=== PATIENT | female | born 1960 | race Two or more races ===

== ENCOUNTER 2024-05-11 21:55 | Emergency (ER) | payer MEDICAID, SELFPAY ==
[2024-05-11 21:56] VITALS: BMI 34.3
[2024-05-11 22:30] VITALS: BP 144/90; PULSE 80; RESP 18; TEMP 36.7; O2SAT 96
--- NOTE | 2024-05-11 23:44 | XR_ITS ---
Examination: PA lateral chest 2 views Technique: Upright PA lateral chest 2 views Exam date and time: May 11, 2024 11:50 PM Comparison December 08, 2023 Indications: Chest pain today. Findings: Moderate elevation right hemidiaphragm Mild enlargement left ventricle No pneumonia or pulmonary edema Moderate osteopenia Impression: No pneumonia or pulmonary edema
--- NOTE | 2024-05-11 23:44 | XR_ITS ---
Examination: CT brain head without contrast. 2-D sagittal coronal reconstructions Date and time of exam:May 12, 2024 at 0006 hrs. Indications: Syncopal episode followed by weakness in the legs today CTDI: vol (mGy):47.60 DLP: (mGycm):992 Technique: Multiple CT axial sections of the brain have been obtained, 5 mm slice thickness. Contrast has not been administered. 2-D sagittal, coronal reconstructions have been obtained Low dose protocols were performed. One or more of the following dose reduction techniques were used; automated exposure control, adjustment of the mA and/or KV according to patient size, use of iterative reconstruction technique. Findings: No significant ventricular enlargement. Intra-axial or extra-axial hemorrhage density is not seen. No mass effect or midline shift Basal cisterns are not remarkable. Fourth ventricle is midline. Cranial vault intact. Impression: Negative for acute hemorrhage, mass effect or midline shift As clinically warranted, if symptoms persist, consider brain MRI follow-up
--- NOTE | 2024-05-11 23:45 | PD.EDRME ---
Rapid Medical Screening Exam RME Arrival date/time: 05/11/24 21:55 63-year-old female with past medical history of CVA, hypertension, and hip replacement presents emergency department complaining of near syncope and bilateral lower extremity weakness that started around 2129. Chief Complaint: Weakness Time Seen by Provider: 05/11/24 23:30 Vital signs: Vital Signs Temperature 98.1 F 05/11/24 22:30 Pulse Rate 80 05/11/24 22:30 Respiratory Rate 18 05/11/24 22:30 Blood Pressure 144/90 H 05/11/24 22:30 Pulse Oximetry (%) 96 05/11/24 22:30 Oxygen Delivery Method Room Air 05/11/24 22:30 Vital signs reviewed by provider: Yes
[2024-05-12 00:20] LABS: Basophils % (Auto) 1 % (0-2.5); Eosinophils # (Auto) 0.1 Thou/mm3 (0.0-0.5); Eosinophils % (Auto) 1 % (0-10); Hematocrit 43.3 % (36.0-46.0); Hemoglobin 13.9 g/dL (12.0-16.0); Immature Granulocytes % (Auto) 0 % (0-0); Immature Granulocytes Auto 0.01 Thou/mm3 (0.00-0.00); Lymphocytes # (Auto) 1.8 Thou/mm3 (1.0-4.8); Lymphocytes % (Auto) 26 % (10-50); Mean Corpuscular HGB Conc 32.1 g/dl (31.0-37.0); Mean Corpuscular Hemoglobin 28.8 pg (25.0-35.0); Mean Corpuscular Volume 90 fL (80-100); Monocytes # (Auto) 0.4 Thou/mm3 (0.0-0.8); Monocytes % (Auto) 6 % (0-12); Neutrophils # (Auto) 4.7 Thou/mm3 (1.8-7.7); Neutrophils % (Auto) 67 % (37-80); Nucleated Red Blood Cell % 0 /100 WBC (0); Platelet Count 230 Thou/mm3 (140-440); Red Blood Count 4.83 Miln/mm3 (4.00-5.20)
--- NOTE | 2024-05-12 00:22 | PRELIM_ITS ---
CT scan of the head without intravenous contrast (axial sections with sagittal and coronal reformats) . May 12, 2024 0006 hours Clinical History: Near syncope Comparison: 10/25/23Findings:There is no intracranial hemorrhage, extra-axial collection, mass, mass-effect or midline shift.There is good gra y-white differentiation. There is no CT evidence of acute large vascular territorial infarct. There is minimal basal ganglia calcification in the right cerebral hemisphere. There is atherosclerotic c alcification along the carotid siphons.Ventricles are not enlarged or effaced.Visualized paranasal si nuses and tympanomastoid cavities are clear. The bony calvarium is intact.Impression:No intracranial hemorrhage, mass-effect or midline shift. No CT evidence of acute large vascular territorial infarc t. Report Electronically Signed By: Nile Chavez 05/12/2024 12:21:19 AM [EST]
[2024-05-12 00:53] LABS: Alanine Aminotransferase 19 U/L (10-49); Albumin/Globulin Ratio 1.5 (1.2-2.2); Alkaline Phosphatase 113 U/L (46-116); Anion Gap 10 (7-16); Aspartate Amino Transferase 33 U/L (0-34); BUN/Creatinine Ratio 15 Ratio (12-20); Bilirubin,Total 0.7 mg/dL (0.3-1.2); Blood Urea Nitrogen 12 mg/dL (9-23); Calcium 10.2 mg/dL (8.3-10.6); Calcium (Corrected) 10.2 mg/dL (8.5-10.1); Carbon Dioxide 26.3 mMol/L (20.0-31.0); Chloride 105 mMol/L (98-107); Creatinine (Component) 0.8 mg/dL (0.6-1.3); Estimated Creatinine Clearance 79.5 mL/min (>60); Globulin 3.4 gm/dL (2.3-3.5); Glucose 101 mg/dL (74-106); Osmolality,Calculated 280 (275-295); Potassium 3.8 mMol/L (3.4-5.1); Sodium 141 mMol/L (136-145); Total Protein 8.4 gm/dL (5.7-8.2); Troponin I < 0.002 ng/mL (0.0-0.045); eGFR > 60 See Note
[2024-05-12 01:35] VITALS: BP 150/99; PULSE 97; RESP 18; TEMP 36.7; O2SAT 96
[2024-05-12 01:41] LABS: Collection Type, Urine Clean Catch
[2024-05-12 01:52] LABS: B-Type Natriuretic Peptide < 20 pg/mL (0-100)
[2024-05-12 02:14] LABS: Amphetamine/Methamp Scrn,U Negative (Negative); Barbiturate Screen,Urine Negative (Negative); Benzodiazepines Screen,Urine Negative (Negative); Benzoylecgonine Screen, Ur Negative (Negative); Fentanyl Screen,Urine Negative (Negative); Opiate Screen,Urine Negative (Negative); THC Screen,Urine Negative (Negative)
[2024-05-12 02:32] LABS: Bilirubin,Urine Negative (Negative); Blood,Urine Negative (Negative); Clarity,Urine Clear (Clear/Hazy); Color,Urine Yellow (Lt Yel-Yel); Glucose, Urine 4+ (Negative); Ketones,Urine 1+ (Negative); Leukocyte Esterase,Urine Negative (Negative); Nitrite,Urine Negative (Negative); PH,Urine 5.5 (5.0-7.0); Protein,Urine Trace (Neg - Trace); RBC,Urine 3 /hpf (0-3); Specific Gravity,Urine 1.039 (1.001-1.035); Sperm,Urine Present; Squamous Epithelial Cell,Urine 3 /hpf (0-5); Urobilinogen,Urine Negative mg/dL (0.0-1.0); WBC,Urine 5 /hpf (0-5)
[2024-05-12 02:35] LABS: Culture Indicated,Urine Not Indicated
[2024-05-12 03:15] VITALS: BP 159/95; PULSE 102; RESP 18; TEMP 36.8; O2SAT 96
--- NOTE | 2024-05-12 04:27 | PD.EDWEAK ---
ED Weakness RME/HPI General Chief complaint: Weakness Stated complaint: LEGS FEEL WEAK Time Seen by Provider: 05/11/24 23:30 Arrival date/time: 05/11/24 21:55 Limitations: no limitations RME / HPI RME / HPI Narrative: 05/11/24 21:55 63-year-old female with past medical history of CVA, hypertension, and hip replacement presents emergency department complaining of near syncope and bilateral lower extremity weakness that started around 2129. --------- Dr. Segal's Main ED Evaluation: Related Data Home Medications ?Medication ?Instructions ?Recorded ?Confirmed clopidogrel 75 mg tablet 75 mg PO QDAY 12/02/22 01/27/24 duloxetine 30 mg capsule,delayed 30 mg PO BID 12/02/22 01/27/24 release losartan 25 mg tablet 25 mg PO QDAY 12/02/22 01/27/24 omega 0-toj-dbc-fish oil 60 mg-90 1 cap PO QDAY 09/16/23 01/27/24 mg-500 mg capsule (Fish Oil) rosuvastatin 10 mg tablet 10 mg PO DAILY 09/16/23 01/27/24 Previous Rx's ?Medication ?Instructions ?Recorded acetaminophen 500 mg tablet 1,000 mg (2 x 500 mg) PO Q6H PRN 09/18/23 (Acetaminophen Extra Strength) pain #90 tabs aspirin 81 mg tablet,delayed 81 mg PO DAILY #30 tabs 09/18/23 release doxycycline hyclate 100 mg tablet 100 mg PO BID #14 tabs 09/18/23 gabapentin 300 mg capsule 300 mg PO .qhs #30 caps 09/18/23 oxycodone 5 mg tablet 5 mg PO Q6H PRN pain #28 tabs 09/18/23 sennosides 8.6 mg-docusate sodium 1 tab-cap PO QDAY #30 tabs 09/18/23 50 mg tablet (Senna-S) Allergies Allergy/AdvReac Type Severity Reaction Status Date / Time No Known Allergies Allergy Verified 01/27/24 17:07 Review of Systems Review of Systems Systems Reviewed: All systems reviewed, normal except as documented Past Medical History Past Medical History NEUROLOGIC: Positive Neurological Disorders and Cerebrovascular Accident (September 2022, Dr Gibson); Negative Seizures CARDIAC: Positive Cardiac Disorders, Hypercholesterolemia and Hypertension; Negative Congestive Heart Failure RESPIRATORY: Negative Chronic Obstructive Pulmonary Disease (COPD), Smoking, Smoking Cessation Counseling, Smoking Exposure or Tobacco Use GASTROINTESTINAL: Positive Gastrointestinal Disorders GENITOURINARY: Negative Genitourinary Disorders or Renal Disease REPRODUCTIVE: Positive Previous Pregnancies MUSCULOSKELETAL: Positive Musculoskeletal Disorders and Arthritis ENDOCRINE: Negative Endocrine Disorders, Diabetes Mellitus Type 1 or Diabetes Mellitus Type 2 HEMATOLOGIC: Negative Blood Disorders PSYCHO/SOCIAL: Positive Depression and Anxiety OTHER HISTORY: Positive Hospitalization (cva 2022), Shingles and Chicken Pox; Negative Autoimmune Disease, Falls, Blood Transfusions, Blood Transfusion Reaction, Anesthesia Reactions, MRSA or Cancer Family History FAMILY HISTORY: Positive Family Cardiac Disorders, Family Cancer and Family Surgery; Negative Family Psychiatric Problems, Family Respiratory Disorders, Family Gastrointestinal Problems or Family Anesthesia Reaction Surgical History SURGICAL: Positive Section Social History SMOKING STATUS: Never smoker ED Exam General Limitations: Present no limitations General appearance: Present alert and in no apparent distress Head Head exam: Present atraumatic Eye Eye exam: Present normal appearance, PERRL and EOMI ENT ENT exam: Present normal exam, normal oropharynx and mucous membranes moist Neck Neck exam: Present normal inspection, full ROM and trachea midline Chest Chest inspection: Present normal inspection and symmetric chest wall rise Respiratory Respiratory exam: Present normal lung sounds bilaterally Cardiovascular Cardiovascular exam: Present regular rate, normal rhythm and normal heart sounds Abdominal Exam Abdominal exam: Present soft and normal bowel sounds Extremities Exam Extremities exam: Present normal inspection and full ROM Back Exam Back exam: Present normal inspection and full ROM Neurological Exam Neurological exam: Present alert, oriented X3 and CN II-XII intact Psychiatric Psychiatric exam: Present normal affect and normal mood Skin Skin exam: Present warm, dry, intact and normal color Course Quality Measures none Orders Category Date Time Status EKG (ED ONLY) *Do not use* NOW Care 05/11/24 23:[address] head/brain wo con Stat Exams 05/11/24 23:44 Taken EKG (ED Only) Stat Exams 05/11/24 23:44 Ordered XR chest 2V Stat Exams 05/11/24 23:44 Completed BNP [B-Type Natriuretic Peptide] Stat Lab 05/11/24 23:57 Completed CBC Stat Lab 05/11/24 23:57 Completed Comprehensive Metabolic Panel Stat Lab 05/11/24 23:57 Completed Drug Screen,Urine Stat Lab 05/12/24 01:30 Completed Troponin I Stat Lab 05/11/24 23:57 Completed Urinalysis, C/S if Indicated Stat Lab 05/12/24 01:30 Completed Sodium Chloride 0.9% 1000 ml [Ns] 1,000 ml Med 05/12/24 04:28 Active IV 999 mls/hr Vital Signs Vital signs: Vital Signs Temperature 98.1 F 05/11/24 22:30 Pulse Rate 80 05/11/24 22:30 Respiratory Rate 18 05/11/24 22:30 Blood Pressure 144/90 H 05/11/24 22:30 Pulse Oximetry (%) 96 05/11/24 22:30 Oxygen Delivery Method Room Air 05/11/24 22:30 Pulse ox is 96% on room air, which is normal according to my interpretation. Weakness Patient data External records reviewed:: [facility] previous records (Per chart review, patient was seen here on 12/08/23 for physical deconditioning.) Clinical information provided by:: patient Social determinants that could affect healthcare access:: none Patient has the following chronic illnesses:: CVA (2022), HTN How is presenting disease/condition affected by chronic disease/condition?: exacerbated by Evaluation data The following diagnostics were reviewed and interpreted by me:: lab results and radiology exam(s) Lab and/or radiology exams considered but not ordered:: none Interpretation Summary: CBC is normal, CMP is normal, troponin is normal, BNP is normal, UA shows an elevated specific gravity of 1.039, UDS is negative, according to my interpretation. EKG done at ---- [facility] Report Signed Patient: LB PALAFOX [facility]. Record#: [id number] Birthdate: 1960 Age/Sex: 63 / F Location: [facility] Attending Dr: Ordering Physician: Esmer LATIF)Bam Date of Service: 05/11/24 Procedure(s): XR chest 2V Accession Number(s): [id number] cc: Marcell Nance MD; Eamon Fine MD; Bam Isabel (FNP)~ Examination: PA lateral chest 2 views Technique: Upright PA lateral chest 2 views Exam date and time: May 11, 2024 11:50 PM Comparison December 08, 2023 Indications: Chest pain today. Findings: Moderate elevation right hemidiaphragm Mild enlargement left ventricle No pneumonia or pulmonary edema Moderate osteopenia Impression: No pneumonia or pulmonary edema Dictated By: Eamon Fine MD Signed By: <Electronically signed by Eamon Fine MD in OV> 05/11/24 8772 [address] Preliminary Report Draft Patient: LB PALAFOX Med. Record#: [id number] Birthdate: 1960 Age/Sex: 63 / F Location: [facility] Attending Dr: Ordering Physician: Date of Service: Procedure(s): Accession Number(s): cc: ~ CT scan of the head without intravenous contrast (axial sections with sagittal and coronal reformats). May 12, 2024 0006 hours Clinical History: Near syncope Comparison: 10/25/23 Findings: There is no intracranial hemorrhage, extra-axial collection, mass, mass-effect or midline shift. There is good lacey-white differentiation. There is no CT evidence of acute large vascular territorial infarct. There is minimal basal ganglia calcification in the right cerebral hemisphere. There is atherosclerotic calcification along the carotid siphons. Ventricles are not enlarged or effaced. Visualized paranasal sinuses and tympanomastoid cavities are clear. The bony calvarium is intact. Impression: No intracranial hemorrhage, mass-effect or midline shift. No CT evidence of acute large vascular territorial infarct. Report Electronically Signed By: Nile Chavez 05/12/2024 12:21:19 AM [EST] Medications / Prescriptions Medication administrations:: Medication Administration History Sodium Chloride (Ns) 1,000 mls @ 999 mls/hr IV .Q1H1M ONE Stop: 05/12/24 05:28 Discharge Plan Prescriptions/Referrals Prescriptions/Med Rec: No Action clopidogrel 75 mg tablet 75 mg PO QDAY Patient Comments: TAKE 1 TABLET BY MOUTH EVERY DAY FOR 90 DAYS losartan 25 mg Tablet 25 mg PO QDAY duloxetine 30 mg capsule,delayed release(/EC) 30 mg PO BID Patient Comments: TAKE 1 CAPSULE BY MOUTH EVERY DAY FOR 7 DAYS THEN INCREASE TO TAKE 1 CAPSULE BY MOUTH TWICE A DAY rosuvastatin 10 mg tablet 10 mg PO DAILY Patient Comments: TAKE 1 TABLET BY MOUTH EVERY DAY omega 7-mwk-lci-fish oil [Fish Oil] 60-90-500 mg Capsule 1 cap PO QDAY sennosides-docusate sodium [Senna-S] 8.6-50 mg tablet 1 tab-cap PO QDAY Qty: 30 0RF aspirin 81 mg tablet,delayed release (DR/EC) 81 mg PO DAILY Qty: 30 0RF acetaminophen [Acetaminophen Extra Strength] 500 mg tablet 1,000 mg PO Q6H MDD 1000mg PRN (Reason: pain) Qty: 90 0RF gabapentin 300 mg capsule 300 mg PO .qhs Qty: 30 0RF doxycycline hyclate 100 mg tablet 100 mg PO BID Qty: 14 0RF oxycodone 5 mg tablet 5 mg PO Q6H MDD 40 PRN (Reason: pain) Qty: 28 0RF Referrals: Marcell Nance MD [Primary Care Provider] - In 1 week Patient/Caregiver Discharge Instructions Print Language: Mongolian
[2024-05-12] MEDS: SODIUM CHLORIDE 0.9% 1000 ML 1,000 ML 999 ML IV (05:17)
[2024-05-12 05:52] VITALS: BP 140/91; PULSE 88; RESP 17; TEMP 36.7; O2SAT 98
--- NOTE | 2024-05-12 06:47 | PD.EDWEAK ---
ED Weakness RME/HPI General Chief complaint: Weakness Stated complaint: LEGS FEEL WEAK Time Seen by Provider: 05/11/24 23:30 Arrival date/time: 05/11/24 21:55 RME / HPI RME / HPI Narrative: 63 year old female with history of CVA, hypertension, hyperlipidemia presents to the ED for evaluation of weakness today. States since 9pm last night her legs suddenly became weak wobbly and shaky when she stood up from a sitting position. During my evaluation at 06:50 hours, the patient reports the weakness in legs has resolved. No other associated symptoms or complaints reported. Denies fevers, chills, chest pain, cough, shortness of breath, nausea, vomiting, diarrhea, constipation, or urinary symptoms. Denies any bleeding. Patient mentioned she was prescribed 7-day course of Cipro for a UTI which she completed yesterday. Related Data Home Medications ?Medication ?Instructions ?Recorded ?Confirmed clopidogrel 75 mg tablet 75 mg PO QDAY 12/02/22 01/27/24 duloxetine 30 mg capsule,delayed 30 mg PO BID 12/02/22 01/27/24 release losartan 25 mg tablet 25 mg PO QDAY 12/02/22 01/27/24 omega 4-dsa-fbk-fish oil 60 mg-90 1 cap PO QDAY 09/16/23 01/27/24 mg-500 mg capsule (Fish Oil) rosuvastatin 10 mg tablet 10 mg PO DAILY 09/16/23 01/27/24 Previous Rx's ?Medication ?Instructions ?Recorded acetaminophen 500 mg tablet 1,000 mg (2 x 500 mg) PO Q6H PRN 09/18/23 (Acetaminophen Extra Strength) pain #90 tabs aspirin 81 mg tablet,delayed 81 mg PO DAILY #30 tabs 09/18/23 release doxycycline hyclate 100 mg tablet 100 mg PO BID #14 tabs 09/18/23 gabapentin 300 mg capsule 300 mg PO .qhs #30 caps 09/18/23 oxycodone 5 mg tablet 5 mg PO Q6H PRN pain #28 tabs 09/18/23 sennosides 8.6 mg-docusate sodium 1 tab-cap PO QDAY #30 tabs 09/18/23 50 mg tablet (Senna-S) Allergies Allergy/AdvReac Type Severity Reaction Status Date / Time No Known Allergies Allergy Verified 01/27/24 17:07 Review of Systems Review of Systems Narrative Review of Systems: Constitutional: DENIES; Fevers Eyes: DENIES; Loss of vision Head/Ear/Nose: DENIES; Loss of hearing Throat: DENIES; Dysphagia Cardiovascular: DENIES; Chest pain, dyspnea or syncope Respiratory: DENIES; Shortness of breath Gastrointestinal: DENIES; Rectal bleeding or melena. Genitourinary: DENIES; Dysuria (painful or difficult urination) Musculoskeletal: DENIES; Arthralgia (pain in a joint),; Skin: DENIES; Rash Neurological: SEE HPI +bilateral leg weakness. DENIES; Loss of function or movement Psychiatric: DENIES; recent major life stressor, emotional problem, illicit drug use or abuse Endocrinology: DENIES; Weight change Hematologic/Lymphatic: DENIES; Abnormal bruising Allergic/Immunologic: DENIES; Urticaria (hives) Past Medical History Past Medical History NEUROLOGIC: Positive Neurological Disorders and Cerebrovascular Accident (September 2022, Dr Gibson) CARDIAC: Positive Cardiac Disorders, Hypercholesterolemia and Hypertension RESPIRATORY: Negative Chronic Obstructive Pulmonary Disease (COPD), Smoking, Smoking Cessation Counseling, Smoking Exposure or Tobacco Use GASTROINTESTINAL: Positive Gastrointestinal Disorders (fatty liver) GENITOURINARY: Negative Genitourinary Disorders or Renal Disease REPRODUCTIVE: Positive Previous Pregnancies MUSCULOSKELETAL: Positive Musculoskeletal Disorders and Arthritis ENDOCRINE: Negative Endocrine Disorders, Diabetes Mellitus Type 1 or Diabetes Mellitus Type 2 HEMATOLOGIC: Negative Blood Disorders PSYCHO/SOCIAL: Positive Depression and Anxiety OTHER HISTORY: Positive Hospitalization (2022), Shingles and Chicken Pox Family History FAMILY HISTORY: Positive Family Cardiac Disorders, Family Cancer and Family Surgery Surgical History SURGICAL: Positive Section (3) Social History SMOKING STATUS: Never smoker ED Exam Narrative Physical exam: Physical Exam: General: The vital signs were reviewed. The patient is non-toxic, in no apparent distress and appears healthy with a patent airway, no respiratory distress and has no apparent circulatory problems. Head & Scalp: Normocephalic, atraumatic. Face: Appears normal and is without lesions, deformity. Ears: Left external pinna appears normal. Right external pinna appears normal. Eyes: The sclera is anicteric. No obvious photophobia. The Left and Right Orbit/Lid/Conjunctiva appears normal without swelling, discoloration or injection. Nose: The nose is without deformity, discharge or tenderness; Throat: Appears normal. The mucous membranes are pink and moist without exudates, redness or mass seen. The tongue appears normal. Neck: The neck is supple and no apparent mass or adenopathy. Chest: The chest wall is normal in size and symmetry and has no chest wall tenderness or crepitus. The patient displays normal ventilator effort without retractions, accessory muscle use and has adequate air movement bilaterally with no wheezes and no rales. Cardiovascular: Regular rate and rhythm; No murmurs, rubs, or gallops; Gastrointestinal: The abdomen appears normal. No obvious hernias or mass. The abdomen is soft and benign, non-distended, with no pain, no guarding and no rebound tenderness. Bowel sounds are present and normal sounding. No CVA tenderness. Genitourinary: Back/Spine: Nontender Extremities/Musculoskeletal/lymphatic: The bilateral upper and lower extremities are warm. There is no evidence of arterial insufficiency. There is no evidence of venous insufficiency/edema. The patient spontaneously moves bilateral upper and lower extremities with no pain and no limitation of movement. There is no apparent, injury or trauma. Skin: The skin is warm, dry and intact. No rashes. No petechia. No purpura. No abnormal bruising. The color is appropriate with no cyanosis. Mental status/Psychiatric: Mental status is appropriate for age. The patient has no apparent delusions, visual hallucinations, no apparent audible hallucinations. The patient has no apparent suicidal thoughts/ideation and no apparent homicidal thoughts/ideation. Neurological: The patient is awake, alert, interactive, cordial, cooperative and is oriented to name and situation. The patient follows commands and answers historical question with no impairment. There is no visual disturbance apparent. The pupils are equal and reactive bilaterally with normal eye movements and no diplopia The bilateral upper and lower extremities have normal strength, normal range of motion and normal functioning. The gait, station and balance appear to be baseline with no acute change patient gets on and off the gurney and walks without any hesitancy or difficulty and denies having any weakness or wobbliness in her legs at this time which is 0640 hrs. Course Quality Measures none Orders Category Date Time Status EKG (ED ONLY) *Do not use* NOW Care 05/11/24 23:[address] head/brain wo con Stat Exams 05/11/24 23:44 Completed EKG (ED Only) Stat Exams 05/11/24 23:44 Ordered XR chest 2V Stat Exams 05/11/24 23:44 Completed BNP [B-Type Natriuretic Peptide] Stat Lab 05/11/24 23:57 Completed CBC Stat Lab 05/11/24 23:57 Completed Comprehensive Metabolic Panel Stat Lab 05/11/24 23:57 Completed Drug Screen,Urine Stat Lab 05/12/24 01:30 Completed Troponin I Stat Lab 05/11/24 23:57 Completed Urinalysis, C/S if Indicated Stat Lab 05/12/24 01:30 Completed Sodium Chloride 0.9% 1000 ml [Ns] 1,000 ml Med 05/12/24 04:28 Discontinued IV 999 mls/hr Vital Signs Vital signs: Vital Signs Temperature 98.1 F 05/11/24 22:30 Pulse Rate 80 05/11/24 22:30 Respiratory Rate 18 05/11/24 22:30 Blood Pressure 144/90 H 05/11/24 22:30 Pulse Oximetry (%) 96 05/11/24 22:30 Oxygen Delivery Method Room Air 05/11/24 22:30 Weakness MDM Narrative MDM Narrative:: Patient presents with an episode of wobbly legs and worried about falling and breaking her reinjuring her hips that she is got bilateral hip replacements by history. There was no unilateral or focal deficits. Medical workup was initiated by the initial evaluation and then this morning reevaluated where the patient has a normal exam and her lab studies reveal a concentrated urine otherwise there is no ongoing significant infection in the urine and she does now recall taking Cipro started 7 days ago for a UTI with her PMD. Chemistry panels are unremarkable normal electrolytes normal kidney function and CBC and white count are within normal limits. Presently this episode of wobbliness which is resolved does not appear to have any serious etiology clinically is not present clinically at this time and the only positive finding is her urine is concentrated maybe she is slightly dehydrated and patient does admit to not drinking much fluids in the last week. Patient was given option to go IV fluids here versus go home and she states she wants to go home she feels fine and will drink plenty of fluids and follow-up with her doctor knows to return if getting worse in any way. Patient data External records reviewed:: [facility] previous records (12/08/2023) Clinical information provided by:: patient Social determinants that could affect healthcare access:: none Patient has the following chronic illnesses:: CVA, hypertension, hyperlipidemia How is presenting disease/condition affected by chronic disease/condition?: exacerbated by Evaluation data The following diagnostics were reviewed and interpreted by me:: lab results and radiology exam(s) Lab and/or radiology exams considered but not ordered:: None Interpretation Summary: Ordering Physician: Esmer LATIF),Bam AREVALO Date of Service: 05/11/24 Procedure(s): XR chest 2V Accession Number(s): [id number] cc: Marcell Nance MD; Eamon Fine MD; Esmer Blackwell (IRINA),Bam AREVALO~ Examination: PA lateral chest 2 views Technique: Upright PA lateral chest 2 views Exam date and time: May 11, 2024 11:50 PM Comparison December 08, 2023 Indications: Chest pain today. Findings: Moderate elevation right hemidiaphragm Mild enlargement left ventricle No pneumonia or pulmonary edema Moderate osteopenia Impression: No pneumonia or pulmonary edema Dictated By: Eamon Fine MD Signed By: <Electronically signed by Eamon Fine MD in OV> 05/11/24 2507 Ordering Physician: Date of Service: Procedure(s): Accession Number(s): cc: ~ CT scan of the head without intravenous contrast (axial sections with sagittal and coronal reformats). May 12, 2024 0006 hours Clinical History: Near syncope Comparison: 10/25/23 Findings: There is no intracranial hemorrhage, extra-axial collection, mass, mass-effect or midline shift. There is good lacey-white differentiation. There is no CT evidence of acute large vascular territorial infarct. There is minimal basal ganglia calcification in the right cerebral hemisphere. There is atherosclerotic calcification along the carotid siphons. Ventricles are not enlarged or effaced. Visualized paranasal sinuses and tympanomastoid cavities are clear. The bony calvarium is intact. Impression: No intracranial hemorrhage, mass-effect or midline shift. No CT evidence of acute large vascular territorial infarct. Report Electronically Signed By: Nile Chavez 05/12/2024 12:21:19 AM [EST] Dictated By: Signed By: Medications / Prescriptions Medications or Prescriptions considered but not ordered:: None Medication administrations:: Medication Administration History Discontinued Medications Sodium Chloride (Ns) 1,000 mls @ 999 mls/hr IV .Q1H1M ONE Stop: 05/12/24 05:28 Last Infusion: 05/12/24 06:23 Dose: Infused Documented By: Admin: 05/12/24 05:17 Dose: 999 mls/hr Documented By: JOSEF See above Consultations Consultation(s) initiated? (list below): No Diagnosis Weakness Differential Diagnosis: acute myocardial infarction, anemia, hypoglycemia, hypothyroidism, rhabdomyolysis, sepsis and dehydration Most likely diagnosis given after review of the tests above:: Bilateral leg weakness Mild dehydration Admission Indicated Admission indicated?: not indicated Admission Request Was there a request for admission?: No Disposition Plan Disposition Plan: Discharge Discharge Attestation Discharge Attestation: The patient and all family members were given an opportunity to ask questions and understood the discharge instructions. Discharge instructions specifically effects, indications for sooner follow up or return to the emergency department, and the expected course of current diagnosis. Patient condition: Stable Discharge Plan Plan Patient Disposition: HOME (Self Care) Prescriptions/Referrals Prescriptions/Med Rec: No Action clopidogrel 75 mg tablet 75 mg PO QDAY Patient Comments: TAKE 1 TABLET BY MOUTH EVERY DAY FOR 90 DAYS losartan 25 mg Tablet 25 mg PO QDAY duloxetine 30 mg capsule,delayed release(DR/EC) 30 mg PO BID Patient Comments: TAKE 1 CAPSULE BY MOUTH EVERY DAY FOR 7 DAYS THEN INCREASE TO TAKE 1 CAPSULE BY MOUTH TWICE A DAY rosuvastatin 10 mg tablet 10 mg PO DAILY Patient Comments: TAKE 1 TABLET BY MOUTH EVERY DAY omega 0-xmd-tss-fish oil [Fish Oil] 60-90-500 mg Capsule 1 cap PO QDAY sennosides-docusate sodium [Senna-S] 8.6-50 mg tablet 1 tab-cap PO QDAY Qty: 30 0RF aspirin 81 mg tablet,delayed release (DR/EC) 81 mg PO DAILY Qty: 30 0RF acetaminophen [Acetaminophen Extra Strength] 500 mg tablet 1,000 mg PO Q6H MDD 1000mg PRN (Reason: pain) Qty: 90 0RF gabapentin 300 mg capsule 300 mg PO .qhs Qty: 30 0RF doxycycline hyclate 100 mg tablet 100 mg PO BID Qty: 14 0RF oxycodone 5 mg tablet 5 mg PO Q6H MDD 40 PRN (Reason: pain) Qty: 28 0RF Referrals: Marcell Nance MD [Primary Care Provider] - In 1 week Problem List Clinical Impression: Bilateral leg weakness, Dehydration, mild Patient/Caregiver Discharge Instructions Additional Instructions: Please return if getting worse. It appears your problem has resolved at this time. Follow-up with your doctor if you have any other episodes or return as we discussed. Since her urine is concentrated we have encouraged her to drink plenty of fluids as mild dehydration can cause you to have some transient weakness or dizziness. Of course avoid alcohol. Print Language: Telugu Stand Alone Forms: Patient Portal Info Letter
[2024-05-12 06:58] VITALS: BP 134/99; PULSE 93; RESP 18; TEMP 36.7; O2SAT 95
== END 2024-05-12 07:11 | disposition home or self-care (01) ==
PROVIDERS: Emergency Provider Emergency Medicine; PCP Family Medicine
DX: E86.0 Dehydration (principal); R07.9 Chest pain, unspecified; R55 Syncope and collapse; R53.1 Weakness; R94.31 Abnormal electrocardiogram [ECG] [EKG]; I10 Essential (primary) hypertension
CPT/HCPCS: 36415; 70450; 71046; 80053; 80307; 81001; 83880; 84484; 85025; 93005; 96360; 99284; J7030

== ENCOUNTER 2024-05-13 12:07 | Emergency (ER) | payer MEDICAID, SELFPAY ==
[2024-05-13 12:45] VITALS: BP 134/81; PULSE 84; RESP 19; TEMP 36.8; O2SAT 94; BMI 34.3
--- NOTE | 2024-05-13 12:59 | XR_ITS ---
Examination: CT cervical spine without contrast 2-D sagittal reconstructions 2-D coronal reconstructions 3-D reconstructions. Exam date and time:May 13, 2024 1421 hours INDICATIONS: Patient fell today with into the neck, neck pain CTDI:vol (mGy) 9.08 DLP: (mGycm) 204 Technique: Multiple 2 mm axial sections of the cervical spine have been obtained. The coronal and sagittal reconstructions have been obtained. 3-D reconstructions have been obtained. Low dose protocols were performed. One or more of the following dose reduction techniques were used; automated exposure control, adjustment of the mA and/or KV according to patient size, use of iterative reconstruction technique. Findings: Axial sections demonstrate intact base of the skull. C1 exhibit satisfactory relationship to the odontoid. No acute cervical vertebral body fracture seen. Alignment posterior spinous processes satisfactory. Impression: No acute cervical fracture.
--- NOTE | 2024-05-13 12:59 | XR_ITS ---
Examination: CT brain head without contrast. 2-D sagittal coronal reconstructions Date and time of exam:May 13, 2024 1421 hours INDICATIONS: Patient fell today with injury to the head, head pain Comparison May 12, 2024 CTDI: vol (mGy):47.7 DLP: (mGycm):1020 Technique: Multiple CT axial sections of the brain have been obtained, 5 mm slice thickness. Contrast has not been administered. 2-D sagittal, coronal reconstructions have been obtained Low dose protocols were performed. One or more of the following dose reduction techniques were used; automated exposure control, adjustment of the mA and/or KV according to patient size, use of iterative reconstruction technique. Findings: No significant ventricular enlargement. Intra-axial or extra-axial hemorrhage density is not seen. No mass effect or midline shift Basal cisterns are not remarkable. Fourth ventricle is midline. Cranial vault intact. Impression: Negative for acute hemorrhage, mass effect or midline shift If acute infarct is a clinical consideration, consider brain MRI follow-up
--- NOTE | 2024-05-13 13:00 | PD.EDRME ---
Rapid Medical Screening Exam RME Arrival date/time: 05/13/24 12:07 63-year-old female with history of stroke bilateral hip replacement presents stating she felt well today she went shopping and then she was going to the car and felt her right leg gave out and she fell to the ground patient reports hitting her head and neck Chief Complaint: Head Injury Time Seen by Provider: 05/13/24 15:50 Vital signs: Vital Signs Temperature 98.3 F 05/13/24 12:45 Pulse Rate 84 05/13/24 12:45 Respiratory Rate 19 05/13/24 12:45 Blood Pressure 134/81 H 05/13/24 12:45 Pulse Oximetry (%) 94 L 05/13/24 12:45 Oxygen Delivery Method Room Air 05/13/24 12:45
--- NOTE | 2024-05-13 13:01 | XR_ITS ---
Examination: AP pelvis single view TECHNIQUE: AP supine portable pelvis single view Exam date and time: May 13, 2024 1306 hours INDICATIONS: Patient fell today with injury to the pelvis, pelvic pain. FINDINGS: Bilateral total hip arthroplasties with satisfactory alignment Bones the pelvis intact IMPRESSION: No fracture depicted
[2024-05-13 13:20] LABS: Basophils % (Auto) 1 % (0-2.5); Eosinophils # (Auto) 0.1 Thou/mm3 (0.0-0.5); Eosinophils % (Auto) 1 % (0-10); Hematocrit 41.4 % (36.0-46.0); Hemoglobin 13.3 g/dL (12.0-16.0); Immature Granulocytes % (Auto) 0 % (0-0); Immature Granulocytes Auto 0.02 Thou/mm3 (0.00-0.00); Lymphocytes # (Auto) 1.7 Thou/mm3 (1.0-4.8); Lymphocytes % (Auto) 27 % (10-50); Mean Corpuscular HGB Conc 32.1 g/dl (31.0-37.0); Mean Corpuscular Hemoglobin 28.7 pg (25.0-35.0); Mean Corpuscular Volume 89 fL (80-100); Monocytes # (Auto) 0.3 Thou/mm3 (0.0-0.8); Monocytes % (Auto) 5 % (0-12); Neutrophils # (Auto) 4.1 Thou/mm3 (1.8-7.7); Neutrophils % (Auto) 66 % (37-80); Nucleated Red Blood Cell % 0 /100 WBC (0); Platelet Count 208 Thou/mm3 (140-440); RDW Standard Deviation 51.8 fL (36.4-46.3); Red Blood Count 4.63 Miln/mm3 (4.00-5.20); White Blood Count 6.2 Thou/mm3 (3.6-11.0)
[2024-05-13 13:34] LABS: Alanine Aminotransferase 18 U/L (10-49); Albumin, Serum 4.7 gm/dL (3.4-4.8); Albumin/Globulin Ratio 1.4 (1.2-2.2); Alkaline Phosphatase 105 U/L (46-116); Anion Gap 7 (7-16); Aspartate Amino Transferase 31 U/L (0-34); BUN/Creatinine Ratio 14 Ratio (12-20); Bilirubin,Total 0.9 mg/dL (0.3-1.2); Blood Urea Nitrogen 11 mg/dL (9-23); Calcium 10.7 mg/dL (8.3-10.6); Calcium (Corrected) 10.7 mg/dL (8.5-10.1); Carbon Dioxide 25.8 mMol/L (20.0-31.0); Chloride 107 mMol/L (98-107); Creatine Kinase 98 U/L (34-171); Creatinine (Component) 0.8 mg/dL (0.6-1.3); Estimated Creatinine Clearance 79.5 mL/min (>60); Globulin 3.4 gm/dL (2.3-3.5); Glucose 103 mg/dL (74-106); Osmolality,Calculated 278 (275-295); Potassium 4.2 mMol/L (3.4-5.1); Sodium 140 mMol/L (136-145); Total Protein 8.1 gm/dL (5.7-8.2); eGFR > 60 See Note
[2024-05-13 16:15] VITALS: BP 150/95; PULSE 78; RESP 16; TEMP 36.5; O2SAT 95
--- NOTE | 2024-05-13 16:31 | EDNOTE_ITS ---
ED Fall Injury RME/HPI General Chief Complaint: Head Injury Stated Complaint: HEAD, BACK, RIGHT WRIST PAIN, FALL; WEAK IN LEGS Time Seen by Provider: 05/13/24 15:50 Arrival date/time: 05/13/24 12:07 RME / HPI RME / HPI Narrative: 63-year-old female with history of stroke bilateral hip replacement presents stating she felt well today she went shopping and then she was going to the car and felt her right leg gave out and she fell to the ground patient reports hitting her head and neck patient denies any LOC. Denies any nausea or vomiting denies any other complaints. Patient is ambulatory. Related Data Home Medications ?Medication ?Instructions ?Recorded ?Confirmed clopidogrel 75 mg tablet 75 mg PO QDAY 12/02/22 01/27/24 duloxetine 30 mg capsule,delayed 30 mg PO BID 12/02/22 01/27/24 release losartan 25 mg tablet 25 mg PO QDAY 12/02/22 01/27/24 omega 3-gqy-hdr-fish oil 60 mg-90 1 cap PO QDAY 09/16/23 01/27/24 mg-500 mg capsule (Fish Oil) rosuvastatin 10 mg tablet 10 mg PO DAILY 09/16/23 01/27/24 Previous Rx's ?Medication ?Instructions ?Recorded acetaminophen 500 mg tablet 1,000 mg (2 x 500 mg) PO Q6H PRN 09/18/23 (Acetaminophen Extra Strength) pain #90 tabs aspirin 81 mg tablet,delayed 81 mg PO DAILY #30 tabs 09/18/23 release doxycycline hyclate 100 mg tablet 100 mg PO BID #14 tabs 09/18/23 gabapentin 300 mg capsule 300 mg PO .qhs #30 caps 09/18/23 oxycodone 5 mg tablet 5 mg PO Q6H PRN pain #28 tabs 09/18/23 sennosides 8.6 mg-docusate sodium 1 tab-cap PO QDAY #30 tabs 09/18/23 50 mg tablet (Senna-S) Allergies Allergy/AdvReac Type Severity Reaction Status Date / Time No Known Allergies Allergy Verified 05/13/24 12:10 Review of Systems Review of Systems Narrative Review of Systems: Review of system reviewed and within normal limits except mentioned in HPI ED Exam Narrative Physical exam: VITAL SIGNS: Reviewed. GENERAL APPEARANCE: Alert and interactive, follows commands, no acute distress, HEAD AND FACE: Non-traumatic. ENT: PERRL, pink conjunctivitis, eyelid no trauma, Mucous membrane moist. NECK: Supple, posterior neck tenderness, no nuchal rigidity. CHEST: No tenderness, no crepitus, no paradoxical movement, no retractions. LUNGS: Clear, well ventilated, symmetric, no rales, no wheezing, no ronchi, no stridor, good breath sounds bilaterally. HEART: Regular rate, regular rhythm, no murmur, no gallops. ABDOMEN: Soft, positive bowel sounds, nondistended, no guarding, nontender, no rebound, no masses, RECTAL: Deferred. GENITAL: Deferred. NEUROLOGICAL: Gross motor function intact sensory function intact, Appropriate for age. MUSCULOSKELETAL: low back nontender, full range of motion. EXTREMITIES: Nontender, full range of motion. SKIN: Color pink, dry, no rash, no lacerations, no abrasions, no contusions. LYMPHATICS: Deferred. Course Quality Measures none Orders Category Date Time Status CT cervical spine wo con Stat Exams 05/13/24 12:[address] head/brain wo con Stat Exams 05/13/24 12:59 Completed XR pelvis 1-2V Stat Exams 05/13/24 13:01 Completed CBC Stat Lab 05/13/24 13:06 Completed CMP [Comprehensive Metabolic Panel] Stat Lab 05/13/24 13:06 Completed Creatine Kinase Stat Lab 05/13/24 13:06 Completed Vital Signs Vital signs: Vital Signs Temperature 98.3 F 05/13/24 12:45 Pulse Rate 84 05/13/24 12:45 Respiratory Rate 19 05/13/24 12:45 Blood Pressure 134/81 H 05/13/24 12:45 Pulse Oximetry (%) 94 L 05/13/24 12:45 Oxygen Delivery Method Room Air 05/13/24 12:45 Fall MDM Narrative MDM Narrative:: 63-year-old female with history of stroke bilateral hip replacement presents stating she felt well today she went shopping and then she was going to the car and felt her right leg gave out and she fell to the ground patient reports hitting her head and neck patient denies any LOC. Denies any nausea or vomiting denies any other complaints. Patient is ambulatory. CT scan of the head came back unremarkable CT scan of the neck came back unremarkable x-ray of the pelvis also came back unremarkable. Patient is ambulatory. Laboratory workup also normal. Patient appears nontoxic and hemodynamically stable. Patient discharged home and instructed to follow-up with primary care provider in 24 to 48 hours. Instructed to return to the emergency department immediately if worsening of symptoms Patient data External records reviewed:: None Clinical information provided by:: patient Social determinants that could affect healthcare access:: none Patient has the following chronic illnesses:: History of CVA How is presenting disease/condition affected by chronic disease/condition?: exacerbated by Evaluation data The following diagnostics were reviewed and interpreted by me:: lab results and radiology exam(s) Lab and/or radiology exams considered but not ordered:: None Interpretation Summary: See results in the MDM Medications / Prescriptions Medications or Prescriptions considered but not ordered:: None Medication administrations:: None Consultations Consultation(s) initiated? (list below): No Diagnosis Fall Differential Diagnosis: syncope and other (Fall, neck pain) Most likely diagnosis given after review of the tests above:: Fall, neck pain Admission Indicated Admission indicated?: not indicated Explain why admission is indicated or not indicated:: None Admission Request Was there a request for admission?: No Disposition Plan Disposition Plan: Discharge Discharge Attestation Discharge Attestation: The patient was given an opportunity to ask questions and understood the discharge instructions. Discharge instructions specifically effects, indications for sooner follow up or return to the emergency department, and the expected course of current diagnosis. Patient condition: Stable Discharge Plan Plan Patient Disposition: HOME (Self Care) Disposition Comment: stable Prescriptions/Referrals Prescriptions/Med Rec: No Action clopidogrel 75 mg tablet 75 mg PO QDAY Patient Comments: TAKE 1 TABLET BY MOUTH EVERY DAY FOR 90 DAYS losartan 25 mg Tablet 25 mg PO QDAY duloxetine 30 mg capsule,delayed release(DR/EC) 30 mg PO BID Patient Comments: TAKE 1 CAPSULE BY MOUTH EVERY DAY FOR 7 DAYS THEN INCREASE TO TAKE 1 CAPSULE BY MOUTH TWICE A DAY rosuvastatin 10 mg tablet 10 mg PO DAILY Patient Comments: TAKE 1 TABLET BY MOUTH EVERY DAY omega 7-vry-lam-fish oil [Fish Oil] 60-90-500 mg Capsule 1 cap PO QDAY sennosides-docusate sodium [Senna-S] 8.6-50 mg tablet 1 tab-cap PO QDAY Qty: 30 0RF aspirin 81 mg tablet,delayed release (DR/EC) 81 mg PO DAILY Qty: 30 0RF acetaminophen [Acetaminophen Extra Strength] 500 mg tablet 1,000 mg PO Q6H MDD 1000mg PRN (Reason: pain) Qty: 90 0RF gabapentin 300 mg capsule 300 mg PO .qhs Qty: 30 0RF doxycycline hyclate 100 mg tablet 100 mg PO BID Qty: 14 0RF oxycodone 5 mg tablet 5 mg PO Q6H MDD 40 PRN (Reason: pain) Qty: 28 0RF Referrals: Marcell Nance MD [Primary Care Provider] - In 1 week Problem List Clinical Impression: Fall, Neck pain Patient/Caregiver Discharge Instructions Discharge Activity: activity as tolerated Education Materials: ED Neck Pain Additional Instructions: Thank you for the opportunity for serving you today. You are stable for discharged . You are advised to: Follow-up with your PCP in 1 to 2 days Return to ED for worsening of symptoms Increase oral fluids Take mowx-leb-gxfrqes Tylenol as needed for pain Print Language: Faroese Stand Alone Forms: [facility]ae Award Info., Patient Portal Info Letter
== END 2024-05-13 16:55 | disposition home or self-care (01) ==
PROVIDERS: Nurse Practitioner Primary Care; Emergency Provider Emergency Medicine; PCP Family Medicine
DX: S09.90XA Unspecified injury of head, initial encounter (principal); S39.93XA Unspecified injury of pelvis, initial encounter; W18.30XA Fall on same level, unspecified, initial encounter; Y93.89 Activity, other specified
CPT/HCPCS: 36415; 70450; 72125; 72170; 80053; 82550; 85025; 99284

== ENCOUNTER → 2024-08-18 | Outpatient (CLI) | payer MEDICAID, SELFPAY ==
--- NOTE | 2024-08-18 09:03 | XR_ITS ---
Examination: Bilateral hips, AP pelvis, 5 views Technique: AP, lateral views both hips, AP pelvis, 5 views Exam date and time: August 18, 2024 0907 hours INDICATIONS: Postop bilateral hip replacements FINDINGS: Bilateral total hip arthroplasties. Satisfactory alignment. No loosening of the prosthetic devices. No fractures. Bones of the pelvis intact IMPRESSION: Bilateral total hip arthroplasties with satisfactory alignment
== END | disposition home or self-care (01) ==
LOC: CDIM 08:53
PROVIDERS: PCP Family Medicine; Referring Provider Orthopaedic Surgery Adult Reconstructive Orthopaedic Surgery; Visit Provider Orthopaedic Surgery Adult Reconstructive Orthopaedic Surgery
DX: Z96.643 Presence of artificial hip joint, bilateral (principal)
CPT/HCPCS: 73522

== ENCOUNTER 2024-08-19 13:55 | Outpatient (AMB) | payer MEDICAID, SELFPAY ==
[2024-08-19 14:32] VITALS: BP 120/77; PULSE 87; RESP 18; TEMP 36.3; O2SAT 95; BMI 33.0
--- NOTE | 2024-08-19 14:32 | PD.ORTHCLVIS ---
Vital signs 08/19/24 14:32 Height 1.63 m Height Method Stated Weight 87.742 kg Weight Measurement Method Standing Scale BMI 33.0 BP 120/77 Blood Pressure Source Automatic Cuff Blood Pressure Location Right Upper Arm Position Sitting Respiration 18 Pulse 87 Pulse Source Monitor Temp 97.3 F Temp Source Temporal Artery Scan Pulse Oximetry (%) 95 Oxygen Delivery Method Room Air Med/Allergies Allergies & Medications Allergies No Known Allergies Allergy (Verified 08/19/24 14:33) Medication Reconciliation clopidogrel 75 mg tablet 75 mg PO QDAY 12/02/22 [History Confirmed 08/19/24] duloxetine 30 mg capsule,delayed release 30 mg PO BID 12/02/22 [History Confirmed 08/19/24] losartan 25 mg tablet 25 mg PO QDAY 12/02/22 [History Confirmed 08/19/24] omega 9-caw-zgp-fish oil 60 mg-90 mg-500 mg capsule (Fish Oil) 1 cap PO QDAY 09/16/23 [History Confirmed 08/19/24] rosuvastatin 10 mg tablet 10 mg PO DAILY 09/16/23 [History Confirmed 08/19/24] acetaminophen 500 mg tablet (Acetaminophen Extra Strength) 1,000 mg (2 x 500 mg) PO Q6H PRN pain #90 tabs 09/18/23 [Rx Confirmed 08/19/24] aspirin 81 mg tablet,delayed release 81 mg PO DAILY #30 tabs 09/18/23 [Rx Confirmed 08/19/24] doxycycline hyclate 100 mg tablet 100 mg PO BID #14 tabs 09/18/23 [Rx Confirmed 08/19/24] gabapentin 300 mg capsule 300 mg PO .qhs #30 caps 09/18/23 [Rx Confirmed 08/19/24] oxycodone 5 mg tablet 5 mg PO Q6H PRN pain #28 tabs 09/18/23 [Rx Confirmed 08/19/24] sennosides 8.6 mg-docusate sodium 50 mg tablet (Senna-S) 1 tab-cap PO QDAY #30 tabs 09/18/23 [Rx Confirmed 08/19/24] Exam Exam Patient is in no acute distress and is cooperative with the examination today. Patient has a normal mood and affect. Breathing is nonlabored. In no respiratory distress. Bilateral extremities were evaluated and demonstrates sensation intact to light touch. Palpable pedal pulses are present. No significant edema is present. Left hip incision is clean dry and intact. There is minimal redness. Her left hip is nontender. No pain with logroll. Her legs equal. X-rays reviewed by me from last week 10/10/2023. This demonstrates a left total hip replacement in good alignment position Bilateral hip replacements are in good position and alignment Assessment and Plan Problem List (1) Status post total hip replacement, left: Status: Acute Plan: 63-year-old female status post left total hip replacement. She is doing well. She is doing fantastic. We will see her back every 1 to 2 years for routine follow-up Office Procedures GNS Level of Care Nursing/Assessment Patient Status: Established Patient Nursing Assessment/Reassesment: Medication Reconciliation, Update PMH in EMR and Vital Signs Coordination of Care: Complex Care and Chronic Disease 1-5, Education Complex Pt/Fam, Consent,records obtained, informed consent, Lab and Imaging orders, Results/Orders obtained and Staff clarify orders Special Needs: Language special needs Established Patient Charge Established Patient Point Assignment: 110 Established Patient Point Charge: EP Level 3 (80-115) MA Intake Visit Data Collection New Patient or Established: Established Patient (seen at [facility] within 3 years) Reason for Visit:: 6 MONTH FOLLOW UP Seen by Clinical Staff ONLY (RN/MA): No Verbal consent obtained for Telemed visit?: No Director Script Required: No PCP or OBGYN visit in last 3 months: Yes Hx Now: No Do You Feel Safe at Home: Yes Authorities Contacted: N/A Questionairres Past Medical History Past Medical History Have you ever been diagnosed with any of the following: Neurological Problems Cerebrovascular Accident (CVA): Yes (September 2022, Dr Gibson) Seizures: No Cardiology Problems Hypercholesterolemia: Yes Congestive Heart Failure: No Hypertension: Yes Respiratory Problems Chronic Obstructive Pulmonary Disease (COPD): No Smoking: No Smoking Cessation Counseling: No Smoking Exposure: No Tobacco Use: No Genital/Urinary Problems Renal Disease: No Reproductive Problems Previous Pregnancies: Yes Musculoskeletal Problems Arthritis: Yes Endocrine Problems Diabetes Mellitus Type 1: No Diabetes Mellitus Type 2: No Psychologic Problems Depression: Yes Anxiety: Yes Other Problems Hospitalization: Yes (2022) Shingles: Yes Falls: No Blood Transfusions: No Blood Transfusion Reaction: No Anesthesia Reactions: No MRSA: No Chicken Pox: Yes Cancer: No Subjective Visit Visit for: follow up visit and hip Immunization / Flu Flu Vaccine in the Last 12 Months: Yes Flu Vaccine Exclusion Criteria: Already Received History of Present Illness Chief complaint: 6 MONTH FOLLOW UP Lucy is doing great status post staged bilateral hip replacements. She is very happy. She has no pain Personal History Occupation: DISABLE Red flag PMH: BMI BMI Counceling provided: Yes Pain Pain level (0-10): 0 Pain location: other (specify) Pain quality: other (specify) Pain timing: other (specify) Associated signs & symptoms: none Ambulatory data Ambulatory device: none Treatments Improvement with previous injections: No Improvement with PT: No Improvement with NSAIDS: no Review of Systems Review of Systems: All systems negative unless otherwise noted in HPI.
== END 2024-08-19 14:50 | disposition home or self-care (01) ==
LOC: HODSRG 13:55
PROVIDERS: PCP Family Medicine; Referring Provider Family Medicine; Supervising Provider Orthopaedic Surgery Adult Reconstructive Orthopaedic Surgery; Visit Provider Orthopaedic Surgery Adult Reconstructive Orthopaedic Surgery
DX: Z96.642 Presence of left artificial hip joint (principal); I10 Essential (primary) hypertension; E78.00 Pure hypercholesterolemia, unspecified; Z86.73 Personal history of transient ischemic attack (TIA), and cerebral infarction without residual deficits
CPT/HCPCS: 99213; G0463

== ENCOUNTER → 2025-01-31 | Outpatient (CLI) | payer MEDICAID, SELFPAY ==
--- NOTE | 2025-01-31 08:45 | XR_ITS ---
Examination: Screening digital mammography, bilateral Computer aided detection 3-D breast Tomosynthesis, bilateral Date and time of exam: 01/31/2025, 8:28 a.m. Comparisons: July 2017 through August 2023 Indications: Screening Technique: Nonmagnified MLO, CC views of the breasts to been obtained, reconstructed from 3-D Tomosynthesis images. R2 computer aided detection program utilized for evaluation of suspicious masses and/or abnormal calcifications. 3-D Tomosynthesis images obtained. Technologist: Findings: There are scattered areas of fibroglandular density. No evidence of abnormal masses or suspicious calcifications. Impression: BI-RADS category 1: Negative findings (within normal) Recommend 1 year follow-up mammogram
== END | disposition home or self-care (01) ==
LOC: CDIM 08:12
PROVIDERS: PCP Family Medicine; Referring Provider Family Medicine; Visit Provider Family Medicine
DX: Z12.31 Encounter for screening mammogram for malignant neoplasm of breast (principal); R92.313 Mammographic fatty tissue density, bilateral breasts
CPT/HCPCS: 77063; 77067